=== PATIENT | female | born 1995 | race American Indian/Alaskan Native ===

== ENCOUNTER 2019-07-07 09:48 | Inpatient (IN) | payer OTHER, MEDICAID ==
--- NOTE | 2019-07-03 15:59 | History and Physical Report ---
History of Present Illness Date of examination: 07/02/19 Chief complaint: Repeat delivery History of present illness: Past History : 3 Term Births: 1 Premature Births: 0 Living Children: 1 Para: 1 Mult. Births: 0 Prev : 1 Prev. attempt? 0 Aborta: 1 Elect. Ab: 0 Spont. Ab: 1 # 1 Delivery date: 2015 Weeks Gestation: 39 labor: no Delivery type: Anesthesia type: epidural Delivery location: [facility] Infant Sex: Female weight: 6# Comments: c/s for IUGR # 2 Delivery date: 07/11/2017 Delivery type: SAB Delivery location: [facility] Comments: 10 wk Past Medical History: Reviewed history from 06/25/2017 and no changes required: Negative Past Medical History Past Surgical History: Reviewed history from 06/25/2017 and no changes required: negative Past Medical History Anesthesia Complications: negative Anemia: negative Autoimmune Disorder: negative Bleeding Disorder: negative Blood Transfusions: negative Breast Disease: negative Diabetes: negative Heart Disease: negative Hypertension: negative Hepatitis/Liver Disease: negative Kidney Disease/UTI: negative Neurologic/Epilepsy/Migraines: negative Phlebitis/Varicosities: negative Psychiatric: negative Pulmonary Disease/Asthma: negative Thyroid Disease: negative Hospitalizations: negative Surgery (Non-food service assistant): negative Abnormal PAP: negative ORIANA Exposure: negative Infertility: negative Uterine Anomaly: negative Uterine Surgery (not C/S): negative Other Gynecologic Problems: negative Social Hx: single, unemployed Lives with grandmother FOC involved Infection History Hx of STD: chlamydia HIV Risk Eval: low risk Hepatitis B Risk Eval: low risk Personal hx. of genital herpes: no Partner hx. of genital herpes: no Rash, Viral, or Febrile illness since last LMP? no Varicella/Chicken Pox Status: Immunized TB Risk: no Genetic History Congenital Heart Defect: Mom: no Dad: no Abigail Disease: Mom: no Dad: no Thalassemia Mom: no Dad: no Neural Tube Defect Mom: no Dad: no Down's Syndrome Mom: no Dad: no Sinan-Sachs Mom: no Dad: no Sickle Cell Disease/Trait Mom: no Dad: no Hemophilia Mom: no Dad: no Muscular Dystrophy Mom: no Dad: no Cystic Fibrosis Mom: no Dad: no Manjinder Chorea Mom: no Dad: no Mental Retardation Mom: no Dad: no Fragile X Mom: no Dad: no Other Genetic/Chromosomal Disorder Mom: no Dad: no Child w/other defect Mom: no Dad: no Enviromental Exposures Xray Exposure: no Medication, drug, or alcohol use since LMP: no Chemical/Other Exposure: no Exposure to Cat Liter: no Hx of Parvovirus (Fifth Disease): no Occupational Exposure to Children: none Active Medications (reviewed today): None Physical Exam General appearance: well nourished, healthy appearing, no distress Chest/Lungs: respiratory effort normal, lungs clear to auscultation Cardiovascular: normal rate and rhythm Abdomen/GI: soft, nontender Extremities: no discoloration or edema Past History - Obstetrical History Expected Date of Delivery: 07/13/19 Actual Gestation: 38 Week(s) 4 Day(s) : 1 Medications and Allergies Allergies Allergy/AdvReac Type Severity Reaction Status Date / Time No Known Allergies Allergy Unverified 08/21/16 13:07 Home Medications Medication Instructions Recorded Confirmed Last Taken Type Ferrous Sulfate [Feosol 325 MG tab] 325 mg PO BID #60 tablet 08/24/16 Unknown Rx Ibuprofen [Motrin 800 MG tab] 800 mg PO Q8HR PRN #30 tablet 08/24/16 Unknown Rx oxyCODONE /ACETAMINOPHEN [Percocet 1 tab PO Q6HR PRN #30 tablet 08/24/16 Unknown Rx 5/325] Results All other labs normal. Assessment and Plan - Patient Problems (1) 39 weeks gestation of Status: Acute (2) BMI 37.0-37.9, adult Status: Chronic (3) Maternal care due to low transverse uterine scar from previous delivery Status: Acute Plan to address problem: Consent reviewed and signed . Laparotomy explained to patient. The risks and alternatives for this surgery were reviewed with the patient. She desires to proceed with repeat desarean delivery. She was informed of possible bleeding, infection, injury to bowel, bladder, ureters or other adjacent organs. The patient was instructed/informed the following: The normal length of hospital stay for this procedure. Nothing to eat or drink after midnight the evening prior to surgery. The usual discomforts associated with this procedure were detailed. Patient was given ample opportunity to have all her questions answered before signing informed consent.
[~2019-07-07 09:48] MED LIST: BICITRA ORAL LIQD 30ML PO SCH; FAMOTIDINE 20 MG/2 ML INJ IV SCH; METOCLOPRAMIDE 10 MG/2 ML INJ IV SCH; OXYTOCIN 20 UNIT/1000ML DRIP 20 UNITS/1,000 ML BAG IV SCH; ceFAZolin/Water 2 GM/20 ML 2 GM/20 ML SYRINGE IV NR
[2019-07-07 10:48] LABS: Hematocrit 32.3 % (30.3-42.9); Hemoglobin 10.8 gm/dl (10.1-14.3); Mean Corpuscular HGB Conc 34 % (30-34); Mean Corpuscular Volume 89 fl (79-97); Platelet Count 119 K/mm3 (140-440); Red Blood Count 3.61 M/mm3 (3.65-5.03); Red Cell Distribution Width 13.6 % (13.2-15.2)
[2019-07-07] MEDS: LACTATED RINGERS 1,000 ML IV SCH ×2 (11:06→12:40)
[2019-07-07] MEDS ORDERED: SODIUM CHLORIDE 0.9% IRR 1,500 ML BOTTLE IR ONE (15:10)
[2019-07-07] MEDS ORDERED: WATER FOR IRRIG STERILE 1,500 ML BOTTLE IR ONE (15:10)
[2019-07-07] MEDS ORDERED: KETOROLAC 30 MG/1 ML INJ ONE (15:33)
[2019-07-07] MEDS ORDERED: DEXMEDETOMIDINE 200 MCG/2 ML VIAL IV ONE (15:33)
[2019-07-07] MEDS ORDERED: diphenhydrAMINE 50 MG/ML VIAL ONE (15:33)
[2019-07-07] MEDS ORDERED: ONDANSETRON 4 MG/2 ML INJ ONE (15:33)
[2019-07-07] MEDS ORDERED: HYDROmorphone 1 MG/1 ML INJ ONE (15:57)
--- NOTE | 2019-07-07 16:20 | Anesthesia Day of Surgery ---
Anesthesia Day of Surgery - Day of Surgery Patient Examined: Yes Patient H&P Reviewed: Yes Patient is NPO: Yes
--- NOTE | 2019-07-07 16:20 | Anesthesia Consultation ---
Anesthesia Consult and Med Hx Date of service: 07/07/19 - Airway Anesthetic Teeth Evaluation: Good ROM Head & Neck: Adequate Mental/Hyoid Distance: Adequate Mallampati Class: Class II Intubation Access Assessment: Good - Pulmonary Exam CTA: Yes - Cardiac Exam Cardiac Exam: RRR - Pre-Operative Health Status ASA Pre-Surgery Classification: ASA2 Proposed Anesthetic Plan: Spinal - Pulmonary Hx Asthma: No COPD: No Hx Pneumonia: No - Cardiovascular System Hx Hypertension: No - Central Nervous System Hx Seizures: No Hx Psychiatric Problems: No - Endocrine Hx Renal Disease: No Hx End Stage Renal Disease: No Hx Hypothyroidism: No Hx Hyperthyroidism: No - Hematic Hx Anemia: No Hx Sickle Cell Disease: No - Other Systems Hx Alcohol Use: No Hx Obesity: Yes (BMI 35.6)
[2019-07-07] MEDS ORDERED: NALOXONE 0.4 MG/1 ML INJ IV PRN ×2 (16:21→18:13)
[2019-07-07] MEDS ORDERED: ONDANSETRON 4 MG/2 ML INJ IV PRN ×2 (16:21→18:13)
[2019-07-07] MEDS ORDERED: PROMETHAZINE 25 MG TAB PO PRN (16:21)
[2019-07-07] MEDS ORDERED: PROMETHAZINE 25 MG RECT SUPP PR PRN (16:21)
[2019-07-07] MEDS ORDERED: HYDROmorphone 1 MG/1 ML INJ IV PRN ×2 (16:21)
--- NOTE | 2019-07-07 16:21 | Post Anesthesia Evaluation ---
- Post Anesthesia Evaluation Patient Participated: Yes Airway Patent: Yes Stable Respiratory Function: Yes Nausea/Vomiting: No Temp > 96.8F: Yes Pain Manageable: Yes Adequeate Hydration: Yes Anesthesia Complications: No Block Receding Appropriately: Yes Patient on Ventilator: No
[2019-07-07] MEDS ORDERED: fentaNYL-BUPIV 2 MCG/ML-0.125% 200 MCG/100 ML BAG EPIDURAL SCH (17:00)
--- NOTE | 2019-07-07 17:09 | Post Operative Note ---
Pre-op diagnosis: IUP@39 weeks, prev c/s desires repeat C/S Post-op diagnosis: same Procedure: LTCS Anesthesia: ADARSH Surgeon: CAROLA CONNELL Timber Selector: KIRILL LAMAS Estimated blood loss: other (800mL) Pathology: none Condition: stable Disposition: PACU
[2019-07-07] MEDS ORDERED: OXYTOCIN 20 UNIT/1000ML DRIP 20 UNITS/1,000 ML BAG IV SCH (18:13)
[2019-07-07] MEDS ORDERED: SIMETHICONE 80 MG CHEW TAB PO PRN (18:13)
[2019-07-07] MEDS ORDERED: MORPHINE 2 MG/1 ML INJ IV PRN (18:13)
[2019-07-07] MEDS ORDERED: D5W/LACTATED RINGERS 1,000 ML IV SCH (18:13)
[2019-07-07] MEDS ORDERED: LANOLIN/ZINC/DIMETHICONE (LANSINOH) 7 GM TP PRN (18:13)
[2019-07-07] MEDS ORDERED: WITCH HAZEL/ GLYCERIN PAD TP PRN (18:13)
[2019-07-07] MEDS ORDERED: ACETAMINOPHEN 325 MG TAB PO PRN (18:13)
[2019-07-07] MEDS ORDERED: IBUPROFEN 800 MG TAB PO PRN (18:13)
[2019-07-07] MEDS ORDERED: MORPHINE 4 MG/1 ML INJ IV PRN (18:13)
[2019-07-07] MEDS: KETOROLAC 30 MG/1 ML INJ IV PRN (18:32)
--- NOTE | 2019-07-07 18:35 | Operative Report ---
Operative Report Operative Report: Date of procedure: 07/07/2019 Pre-operative diagnosis: 1. Intrauterine at 39 weeks 2. Maternal care for previous delivery, patient desired repeat delivery 3. 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 Intrauterine at 39 weeks 2. Maternal care for previous delivery, patient desired repeat delivery 3. 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 Low transverse section Surgeon: Dottie Amanda MD Community Arts Worker: [] Anesthesia: Spinal EBL: 800 mL Complications: None Findings: Patient with grossly normal uterus tubes and ovaries bilaterally. Live born Male infant weight 7 lbs. 0 oz. 8 at 1 minute and 9 at 5 minutes Specimen(s): Procedure: Patient was taken to the OR where spinal anesthesia was placed. She was then placed in the left lateral tilt position and prepped and draped in usual sterile fashion. Timeout was performed. Once an appropriate level of anesthesia was noted, Pfannenstiel incision was made and extended to fascia which was incised and extended in the lateral direction. The overlying fascia was sharply dissected away from the underlying rectus muscles in the superior inferior direction. The midline within it bluntly. The large Erin retractor was placed. The vesicouterine fold was incised with blunt dissection bladder flap was created. Bladder blade was placed. Then a transverse incision was made in the lower uterine segment and extended superior lateral direction with finger fractionation. Light meconium fluid was noted. The was delivered from the cephalic position with spontaneous cry and excellent tone, mouth and nose were bulb suctioned and the cord was doubly clamped and cut and infant was given to the resuscitation team present. [Cord blood was obtained.] The placenta was manually extracted. The uterus was exteriorized and cleaned of any further products of conception and placental tissue. The uterine incision was reapproximated using 0 Vicryl in a running interlocking stitch. Once hemostasis was noted, a further suture of 0 Vicryl in imbricating fashion was placed. Once hemostasis was noted the uterus was allowed back in the pelvic cavity. Pelvis was irrigated with warm normal saline. Surgicel was placed on the incision for hemostasis. Interceed was also placed to prevent adhesions. The bladder blade was removed and the rectus muscles were approximated using 0 Vicryl in a figure of 8 fashion 2. Once hemostasis was noted the fascia was reapproximated using 0 Vicryl in a simple running stitch. Once hemostasis was noted, the skin was reapproximated using 4-0 Vicryl on a Ulysses needle in a subcuticular manner. Counts were correct 3. Clear yellow urine was noted to drain into the Cooley bag. Patient tolerated procedure well as taken recovery room in stable condition.
[2019-07-07] MEDS: ceFAZolin/NS 1 GM/50 ML 1 GM/50 ML BAG IV SCH (21:31)
[2019-07-08] MEDS: KETOROLAC 30 MG/1 ML INJ IV PRN ×2 (01:30→15:12)
[2019-07-08] MEDS: ceFAZolin/NS 1 GM/50 ML 1 GM/50 ML BAG IV SCH (05:40)
[2019-07-08 06:22] LABS: Hematocrit 28.4 % (30.3-42.9); Hemoglobin 9.4 gm/dl (10.1-14.3)
--- NOTE | 2019-07-08 06:32 | Progress Note ---
Assessment and Plan - Patient Problems (1) delivery delivered Onset Date: ~07/07/19 Current Visit: Yes Status: Acute Plan to address problem: Doing well Day # 1 s/p section Continue postoperative pathway Advance diet and activity as tolerated. Subjective - Subjective Date of service: 07/08/19 (no c/o voiced) Principal diagnosis: s/p repeat section Patient reports: appetite normal, voiding normally, pain well controlled [place]: doing well Objective - Vital Signs Latest vital signs: Vital Signs Temp Pulse Resp BP BP Pulse Ox 07/08/19 05:44 18 07/08/19 04:00 98.4 F 71 18 101/78 07/08/19 01:30 18 07/08/19 00:00 98.6 F 71 16 118/74 07/07/19 21:31 18 07/07/19 19:30 98.6 F 69 16 120/65 07/07/19 17:49 63 136/73 100 07/07/19 17:20 98.5 F 70 16 137/80 100 07/07/19 17:00 68 18 146/94 98 07/07/19 16:50 68 18 135/80 98 07/07/19 16:35 68 17 141/95 99 07/07/19 16:20 75 14 120/78 96 07/07/19 16:15 80 14 126/77 100 07/07/19 16:11 98.3 F 78 13 130/85 100 07/07/19 10:36 98.2 F 89 16 137/87 07/07/19 10:22 89 137/87 07/07/19 10:18 91 H 98 07/07/19 10:13 66 98 Intake and Output 07/07/19 07/07/19 07/08/19 14:59 22:59 06:59 Intake Total 1000 1950 900 Output Total 150 1700 Balance 1000 1800 -800 Intake: IV 1000 1650 ANCEF/NS 1 GM/50 ML 1 gm 50 In 50 ml @ 100 mls/hr IV Q8H ALEXANDRE Rx#:[id number] Lactated Ringers 1,000 ml 1000 @ 2250 mls/hr IV PREOP ALEXANDRE Rx#:[id number] Intake, Free Water 300 900 Output: Urine 150 1700 Indwelling Catheter 900 Void 800 Other: Total, Output Amount 800 # Voids Void 1 Weight 254 lb Estimated Blood Loss 800 Patient Weight 07/08/19 06:59 Weight 254 lb - Exam Breasts: Present: normal Cardiovascular: Present: Regular rate Lungs: Present: Normal air movement Abdomen: Present: normal appearance, soft, normal bowel sounds Uterus: Present: normal Extremities: Present: normal Incision: Present: normal, dry, intact, dressed (to be removed later today) - Labs Labs: Abnormal lab results 07/07/19 Range/Units 10:30 RBC 3.61 L (3.65-5.03) M/mm3 Plt Count 119 L (140-440) K/mm3
[2019-07-08] MEDS: FERROUS SULFATE 325 MG TAB PO SCH (09:52)
[2019-07-08] MEDS: oxyCODONE /ACETAMINOPHEN 5-325MG TAB PO PRN ×2 (09:54→18:49)
[2019-07-08] MEDS ORDERED: TETANUS,DIPH,PERTUSS(ACELL) VACCINE 0.5 ML SYRINGE IM ONE (16:14)
[2019-07-09] MEDS: oxyCODONE /ACETAMINOPHEN 5-325MG TAB PO PRN ×3 (00:33→11:37)
--- NOTE | 2019-07-09 06:53 | Discharge Summary ---
Providers - Providers Date of Admission: 07/07/19 09:48 Date of discharge: 07/09/19 (pt agrees with d/c) Attending physician: CAROLA CONNELL 07/07/19 18:13 Consult to Aviation Tactical Readiness Officer [CONS] Routine Reason For Exam: Primary care physician: CAROLA CONNELL Hospitalization Reason for admission: section, IUP at term Delivery: Procedure: repeat low transverse Episiotomy: none Laceration: none Incision: normal, dry, intact Other procedures: none complications: none Discharge diagnosis: IUP at term delivered [place] baby: male Hospital course: uncomplicated section, repeat Pt resting No c/o voiced VSS FF below umb Lochia scant Incision D&I H&H 05/23 drop r/t blood loss from surgery Pt is asymptomatic Doing well s/p r c/s P: d/c today with instructions Keep postop appt Call for circ Take medications as prescribed Condition at discharge: Good Disposition: DC-01 TO HOME OR SELFCARE - Discharge Diagnoses (1) delivery delivered Status: Acute Comment: RTO 1 week postop care Plan - Discharge Medications Prescriptions: Lidocain2.5%/Prilocai2.5% [Emla] 5 gm TP ONCE #1 tube Ibuprofen [Motrin 800 MG tab] 800 mg PO TID PRN #30 tablet PRN Reason: Pain oxyCODONE /ACETAMINOPHEN [Percocet 5/325 mg] 1 - 2 tab PO Q4HR PRN #20 tablet PRN Reason: Pain - Provider Discharge Summary Activity: routine, no sex for 6 weeks, no heavy lifting 4 weeks, no strenuous exercise Diet: routine Instructions: routine Additional instructions: [] Smoking cessation referral if applicable(refer to patient education folder for contact #) [] Refer to [facility] Booklet Call your doctor immediately for: * Fever > 100.5 * Heavy vaginal bleeding ( >1 pad per hour) * Severe persistent headache * Shortness of breath * Reddened, hot, painful area to leg or breast * Drainage or odor from incision. * Keep incision clean and dry at all times and follow doctor's instructions regarding bathing/showering - Follow up plan Follow up: CAROLA CONNELL MD [Primary Care Provider] - 07/15/19 10:00 am (Congratulations! Please call [phone] to schedule your son's circumcision in 1 week. Bring the EMLA cream with you to his visit. Do NOT use at home. Your postoperative visit is scheduled for 07-15-19 at 10:00AM Take medications as prescribed. Call with concerns.)
[2019-07-09] MEDS: FERROUS SULFATE 325 MG TAB PO SCH (10:00)
[2019-07-09 16:00] VITALS: BP 135/87
[2019-07-09] MEDS ORDERED: FLU VACC QUAD 2019-20 (3 YR UP)/PF 60 MCG/0.5 ML SYRINGE IM ONE (16:30)
== END 2019-07-09 17:40 | disposition home or self-care (01) | DRG 787 ==
LOC: APU 09:48 → OB 18:10
PROVIDERS: ADMIT Obstetrics & Gynecology; ATTEND Obstetrics & Gynecology
PROC: 10D00Z1 Extraction of Products of Conception, Low, Open Approach (ICD-10-PCS; principal; 2019-07-07)
PROC: 3E0234Z Introduction of Serum, Toxoid and Vaccine into Muscle, Percutaneous Approach (ICD-10-PCS; 2019-07-08)
DX: O99.824 Streptococcus B carrier state complicating childbirth (principal); R71.0 Precipitous drop in hematocrit; O34.211 Maternal care for low transverse scar from previous cesarean delivery; Z3A.39 39 weeks gestation of pregnancy; Z37.0 Single live birth; O99.214 Obesity complicating childbirth; E66.9 Obesity, unspecified; Z86.19 Personal history of other infectious and parasitic diseases; O77.0 Labor and delivery complicated by meconium in amniotic fluid; O90.89 Other complications of the puerperium, not elsewhere classified; Z23 Encounter for immunization
CPT/HCPCS: 36415; 85014; 85018; 85027; 86592; 86850; 86900; 86901; 90686; G0378; C1765; J0690; J1170; J1200; J1885; J2270; J2405; J2590; J2765; J3490; J7120; J7121